=== PATIENT | female | born 1975 | race Asian ===

== ENCOUNTER 2017-05-10 15:03 | Emergency (ER) | payer OTHER ==
[2017-05-10 15:11] VITALS: BP 135/82
--- NOTE | 2017-05-10 15:16 | ED Physician Documentation ---
PD HPI OPHTHO - Stated complaint Stated Complaint: VISION CHANGES - Chief complaint Chief Complaint: Heent - History obtained from History obtained from: Patient - History of Present Illness Timing - onset: How many hours ago (1-2), Today Timing - duration: Minutes (20) Timing - details: Abrupt onset, Now resolved. No: Still present Location: Both Quality / character: Other (she had flashing lights and squiggly lines (like looking through water) in first left eye peripherally then to right eye. No headache. No loss of vision per se.) Associated symptoms: Photophobia (mild). No: Discharge, FB sensation, Double vision, Loss of vision, Headache Contributing factors: No: Recent URI, FB, Wears contacts Similar symptoms before: Has not had sx before Recently seen: Not recently seen Review of Systems Constitutional: denies: Fever, Chills Eyes: denies: Loss of vision, Discharge, Irritation Nose: denies: Rhinorrhea / runny nose, Congestion Throat: denies: Sore throat Neurologic: denies: Focal weakness, Numbness, Near syncope, Confused, Altered mental status, Headache, Head injury PD PAST MEDICAL HISTORY - Past Medical History Cardiovascular: None Respiratory: None Neuro: Headache/migraine (occasional but has not had visual component with them in the past (other than photophobia). ) - Present Medications Home Medications: Ambulatory Orders Medication Instructions Recorded Confirmed No Known Home Medications [No 05/10/17 05/10/17 Known Home Medications] - Allergies Allergies/Adverse Reactions: Allergies Allergy/AdvReac Type Severity Reaction Status Date / Time No Known Drug Allergies Allergy Verified 05/10/17 15:10 PD ED PE NORMAL - Vitals Vital signs reviewed: Yes - General General: Alert and oriented X 3, No acute distress, Well developed/nourished - HEENT HEENT: Atraumatic, PERRL, EOMI, Ears normal, Pharynx benign - Neck Neck: Supple, no meningeal sign, No adenopathy, No bruit - Derm Derm: Normal color, Warm and dry - Neuro Neuro: Alert and oriented X 3, 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 No: Injected conj/sclera, Papilledema Results - Vitals Vitals: Oxygen O2 Source Room air PD MEDICAL DECISION MAKING - ED course Complexity details: considered differential (she does have history of migraines annd the recent symptoms today are very c/w opthalmic migraine. Normal neuro exam. ), d/w patient Departure - Departure Disposition: 01 Home, Self Care Clinical Impression: Ophthalmic migraine Condition: Stable Record reviewed to determine appropriate education?: Yes Instructions: ED Headache Migraine Comments: Your eye exam looks normal here. This sounds very consistent with an ophthalmic migraine. Recheck if different symptoms or loss of vision occurs. I do not see need for further testing at this time. Discharge Date/Time: 05/10/17 15:55
== END 2017-05-10 15:55 | disposition home or self-care (01) ==
LOC: ED 15:03
DX: G43.B0 Ophthalmoplegic migraine, not intractable (principal)
CPT/HCPCS: 99283